=== PATIENT | male | born 2000 | race Caucasian/White ===

== ENCOUNTER 2019-05-27 15:02 | Emergency (ER) | payer SELFPAY ==
[~2019-05-27] VITALS: Ht 182.9 cm; Wt 68.5 kg
--- NOTE | 2019-05-27 15:13 | NUR ---
FABIOLA, C/O ALLERGIC REACTION TO DAIRY, STARTED X1 HOUR AGO, TOOK BENADRYL 3 TABLETS [employer]. -SOB, GENERALIZED HIVES, NOSE CONGESTED, TO ER BED 1, HOOKED TO MONITOR, CHANGED TO GOWN, PROVIDED W WARM BLANKET, NEMO PANDEY AT BEDSIDE
[2019-05-27] MEDS ORDERED: EPINEPHRINE (1:1000) 1 MG/ML AMPUL ONE ×2 (15:22→16:04)
[2019-05-27] MEDS ORDERED: methylPREDNISolone SOD SUCC 125 MG/2ML VIAL ONE (15:23)
[2019-05-27] MEDS ORDERED: FAMOTIDINE/PF INJ 20 MG/2 ML VIAL IV ONE (15:23)
[2019-05-27] MEDS: IV NS 0.9% 1,000 ML BAG IV ONE (15:30)
[2019-05-27] MEDS: EPINEPHRINE (1:1000) MDV 30 MG/30ML VIAL SUBCUT ONE ×2 (15:30→16:10)
[2019-05-27] MEDS: methylPREDNISolone SOD SUCC 125 MG/2ML VIAL IV ONE (15:33)
[2019-05-27] MEDS: FAMOTIDINE/PF INJ 20 MG/2 ML VIAL IV ONE (15:33)
[2019-05-27] MEDS ORDERED: ALBUTEROL FS 2.5 MG/3 ML VIAL.NEB ONE (16:08)
[2019-05-27] MEDS: ALBUTEROL FS 2.5 MG/3 ML VIAL.NEB NEB ONE (16:14)
--- NOTE | 2019-05-27 16:17 | NUR ---
ONGOING BREATHING TREATMENT
--- NOTE | 2019-05-27 18:40 | NUR ---
IV removed. Catheter intact and site benign. Pressure and 4x4 applied to site. No bleeding noted.Patient discharged to home in stable condition. Written and verbal after care instructions given. Patient verbalizes understanding of instruction.
[2019-05-27 18:41] VITALS: BP 112/52
== END 2019-05-27 18:41 | disposition home or self-care (01) ==
LOC: ER 15:03
DX: T78.2XXA Anaphylactic shock, unspecified, initial encounter (principal); L50.0 Allergic urticaria; R00.0 Tachycardia, unspecified; Z91.011 Allergy to milk products
CPT/HCPCS: 94640 ×2; 96372 ×2; 96374; 96375; 99291; J0171 ×4; J2930; J3490; J7030